=== PATIENT | female | born 1955 | race Caucasian/White ===

== ENCOUNTER → 2017-06-22 | Day surgery (SDC) | payer BC ==
--- NOTE | 2017-06-23 17:27 | PATH ---
Surgical Pathology Report Patient Name: EFE SMITH [facility]. Rec. #: [id number] /Age/Gender: 1955 (Age: 61) / F Account: [id number] Location: RADIOLOGY ULRAS Taken: 06/22/2017 Received: 06/22/2017 Reported: 06/23/2017 Physicians: Igor Rose NP Specimen(s) Received LEFT BREAST CORE BIOPSY 3:00 Clinical History Palpable mass (palpable left breast 3:00, 0.7 cm mass) Ultrasound findings: Suspicious Final Diagnosis LEFT BREAST, 3:00, ULTRASOUND GUIDED NEEDLE CORE BIOPSY: MODERATELY DIFFERENTIATED INVASIVE DUCTAL CARCINOMA, MEASURING AT LEAST 0.2 CM MEASURED ON THE SLIDE. Results of Estrogen Receptor (ER) and Progesterone Receptor (NE) studies performed at [facility] are as follows: ER (clone [id number] mouse monoclonal antibody by [employer]): >95% nuclear staining with strong intensity (Positive). NE (clone16 mouse monoclonal antibody by [employer]): 0% nuclear staining (Negative). Positive and negative controls (internal if applicable) show appropriate results. Formalin fixation and cold ischemic times are within current ASCO/CAP recommendations for ER, NE and Her2 testing. Comment: Immunohistochemical stains performed and interpreted at [facility] show the following results: The tumor is positive with E-Cadherin, consistent with ductal phenotype. This case was discussed with JESSICA Macias on June 23, 2017. Assays for Her2/madhuri and Ki67 are pending, and a report will follow. Electronically Signed Jean Marie Haq M.D. Addendum Reported: 06/24/2017 Addendum Diagnosis Results of Her2 (IHC) & Ki-67 studies performed at [place], [place] ([id number]) are as follows: Her2 IHC (EP3 from [employer], formerly known as [id number], using [employer] Polymer Refine detection kit): 1+ Negative Ki-67: ~20% (Intermediate proliferative index) Positive and negative controls (internal if applicable) show appropriate results. Jean Marie Haq M.D. Gross Description Received in formalin, labeled "left breast biopsy," are 4 mcpherson-yellow, cylindrical portions of fibroadipose tissue ranging from 0.8-1.5 cm. in length and averaging 0.1 cm. in diameter. The specimen is submitted in toto in one cassette. Time to formalin fixation: Less than one minute Total formalin fixation time: Approximately 7 hours. 06/22/2017 [facility]06/22/2017
== END | disposition home or self-care (01) ==
LOC: JRADUS-SUR 09:31
PROVIDERS: ATTEND Nurse Practitioner
PROC: 0HBU3ZX Excision of Left Breast, Percutaneous Approach, Diagnostic (ICD-10-PCS; principal; 2017-06-22)
DX: C50.912 Malignant neoplasm of unspecified site of left female breast (principal); Z17.0 Estrogen receptor positive status [ER+]
CPT/HCPCS: 19083; 88305-TC; 88342-TC

== ENCOUNTER 2017-10-03 17:30 | Emergency (ER) | payer BC ==
[2017-10-03 17:44] VITALS: BMI 20.5
[2017-10-03] MEDS ORDERED: ACETAMINOPHEN 1000 MG/100 ML VIAL (NON FORMULARY) IVPB ONE (18:00)
[2017-10-03] MEDS ORDERED: SODIUM CHLORIDE 1,000 ML IV STA (18:01)
--- NOTE | 2017-10-03 18:01 | PDOC ---
History of Present Illness - General History Source: Patient Exam Limitations: No Limitations - History of Present Illness Initial Comments: 10/03/17 18:27 Chief Complaint: Fever History of Present Illness: The patient comes in with complaints of 1 days of increasing fever. She reports her fever began at 99.1 and increased to 102 by this afternoon. Additionally she reports a burning and tightness in her chest, making it difficult to breathe. She reports throat swelling and soreness, and nasal congestion as well that began today. The patient reports being sent to the ED by her doctors at [facility] for a white blood cell count and evaluation of fever source. She reports being instructed to not take any pain relievers because of her chemotherapy course. Review of Systems: She denies any chills, diaphoresis, or body aches. She denies any nausea or vomiting aside from being related to her chemotherapy. She denies diarrhea or constipation. The patient denies any urinary complaints or vaginal discharge. Past Medical History: The patient is currently undergoing chemotherapy for breast cancer at [facility]. Her lumpectomy was in June 30 and her most recent chemotherapy session was on August 27. 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 Social History: Denies drug, alcohol, or drug use <Christine Gunter - Last Filed: 10/03/17 18:27> <Fortunato Root - Last Filed: 10/03/17 18:50> - General Chief Complaint: Respiratory Stated Complaint: SORE THROAT, NASAL CONGESTION, COUGH, FEVER Time Seen by Provider: 10/03/17 17:35 Past History <Christine Gunter - Last Filed: 10/03/17 18:27> - Past Medical History Anemia: No Asthma: No Cancer: No Cardiac Disorders: Yes (H/O RENAL CA, BREAST CA) CVA: No COPD: No CHF: No Dementia: No Diabetes: No GI Disorders: Yes (INTERNAL HEMORRHOIDS,CONSTIPATION,IBS,MELANOSIS COLI, REDUNDANT COLON,) Disorders: No HTN: No Hypercholesterolemia: No Liver Disease: No Seizures: No Thyroid Disease: No - Surgical History Abdominal Surgery: No Appendectomy: No Cardiac Surgery: No Cholecystectomy: No Lung Surgery: No Neurologic Surgery: No Orthopedic Surgery: No - Suicide/Smoking/Psychosocial Hx Smoking History: Never smoked Have you smoked in the past 12 months: No Hx Alcohol Use: No Drug/Substance Use Hx: No Substance Use Type: None <Fortunato Root - Last Filed: 10/03/17 18:50> - Past Medical History Allergies/Adverse Reactions: Allergies Allergy/AdvReac Type Severity Reaction Status Date / Time No Known Drug Allergies Allergy Verified 10/03/17 17:35 Home Medications: Ambulatory Orders Lubiprostone [Amitiza] 96 mcg PO BID 12/28/15 Polyethylene Glycol 3350 [Miralax 255 gm Btl -] 17 gm PO HS 12/28/15 Zolpidem Tartrate 5 mg PO HS PRN 12/28/15 Bisacodyl [Laxative] 10 mg PO DAILY 10/03/17 Docusate Sodium [Colace] 100 mg PO DAILY 10/03/17 Review of Systems - Review of Systems Able to Perform ROS?: Yes All Other Systems: Reviewed and Negative <Christine Gunter - Last Filed: 10/03/17 18:27> *Physical Exam - Vital Signs Last Vital Signs Temp Pulse Resp BP Pulse Ox 102.4 F H 112 H 20 139/91 97 10/03/17 17:30 10/03/17 17:30 10/03/17 17:30 10/03/17 17:30 10/03/17 17:30 <Christine Gunter - Last Filed: 10/03/17 18:27> - Vital Signs Last Vital Signs Temp Pulse Resp BP Pulse Ox 102.4 F H 112 H 20 139/91 97 10/03/17 17:30 10/03/17 17:30 10/03/17 17:30 10/03/17 17:30 10/03/17 17:30 <Fortunato Root - Last Filed: 10/03/17 18:50> ED Treatment Course - LABORATORY CBC & Chemistry Diagram: 10/03/17 18:16 10/03/17 18:16 - ADDITIONAL ORDERS Additional order review: 10/03/17 18:00 Group A Strep Rapid Antigen - Final Throat - Medications Given in the ED: ED Medications Discontinued Medications Generic Name Dose Route Start Last Admin Trade Name Freq PRN Reason Stop Dose Admin Acetaminophen 1,000 mg 10/03/17 18:00 10/03/17 18:20 Ofirmev Injection - IVPB 10/03/17 18:01 1,000 mg ONCE ONE Administration <Christine Gunter - Last Filed: 10/03/17 18:27> - LABORATORY CBC & Chemistry Diagram: 10/03/17 18:16 10/03/17 18:16 <Fortunato Root - Last Filed: 10/03/17 18:50> Medical Decision Making - Medical Decision Making 10/03/17 18:49 Strep Screen: Negative <Fortunato Root - Last Filed: 10/03/17 18:50> *DC/Admit/Observation/Transfer - Attestations Scribe Attestion: 10/03/17 18:28 Documentation prepared by Christine Gunter, acting as clinical medical assistant for Fortunato Blunt MD. <Christine Gunetr - Last Filed: 10/03/17 18:27> <Fortunato Root - Last Filed: 10/03/17 18:50> - Discharge Dispostion Condition at time of disposition: Stable
[2017-10-03] MEDS ORDERED: ACETAMINOPHEN INJECTION 100 ML IVPB ONE (18:09)
[2017-10-03 18:36] LABS: BASO % 0.2 % (0-2.0); EOS % 0.8 % (0-4.5); LYMPH % 5.7 % (8-40); MCH 31.1 pg (25.7-33.7); MCHC 32.5 g/dl (32.0-36.0); MEAN CELL VOLUME 95.6 fl (80-96); MEAN PLT VOLUME 9.2 fl (7.5-11.1); MONO % 8.8 % (3.8-10.2); NEUT % 84.5 % (42.8-82.8); PLATELET COUNT 267 K/MM3 (134-434); RBC 4.19 M/mm3 (3.60-5.2); RDW 14.1 % (11.6-15.6); WHITE BLOOD COUNT 9.6 K/mm3 (4.0-10.8)
[2017-10-03 18:49] LABS: ALBUMIN 4.2 g/dl (3.5-5.0); ALK PHOS 171 U/L (32-92); ANION GAP 8 (8-16); BILIRUBIN,TOTAL 0.4 mg/dl (0.2-1.0); BLOOD UREA NITROGEN 10 mg/dl (7-18); CALCIUM 9.2 mg/dl (8.4-10.2); CHLORIDE 96 mmol/L (98-107); CO2 27 mmol/L (22-28); CREATININE 0.8 mg/dl (0.6-1.3); GLUCOSE,RANDOM 107 mg/dl (74-106); SGOT/AST 39 U/L (10-42); SGPT/ALT 91 U/L (10-40); SODIUM 131 mmol/L (136-145); TOT PROT 6.5 g/dl (6.4-8.3)
[2017-10-03 18:55] LABS: PH,URINE 7.5 (4.5-8); URINE APPEARANCE Clear; URINE BILIRUBIN Negative (NEGATIVE); URINE GLUCOSE (UA) Negative (NEGATIVE); URINE KETONE Trace (NEGATIVE); URINE NITRITE Negative (NEGATIVE); URINE PROTEIN Negative (NEGATIVE); URINE UROBILINOGEN 0.2 (0.2-1.0)
[2017-10-03 19:00] LABS: URINE BLOOD Trace-intact (NEGATIVE); URINE COLOR YELLOW
[2017-10-03] MEDS ORDERED: CEFTRIAXONE 1 GM in DEXTROSE 5%-WATER - 100 ML IVPB ONE (19:50)
[2017-10-03] MEDS ORDERED: OSELTAMIVIR PHOSPHATE 75 MG CAPSULE ONE (19:51)
[2017-10-03] MEDS ORDERED: AZITHROMYCIN IVPB 500 MG in DEXTROSE 5%-WATER - 250 ML IVPB ONE (19:51)
[2017-10-03] MEDS ORDERED: SODIUM CHLORIDE 1,000 ML IV ONE (19:51)
[2017-10-03] MEDS ORDERED: cefTRIAXone SODIUM 1 GM VIAL ONE (19:52)
[2017-10-03] MEDS ORDERED: AZITHROMYCIN 500 MG VIAL IVPB ONE (19:52)
[2017-10-03] MEDS ORDERED: OSELTAMIVIR PHOSPHATE 75 MG CAPSULE PO ONE (20:09)
--- NOTE | 2017-10-03 20:12 | PDOC ---
*Physical Exam - Vital Signs Last Vital Signs Temp Pulse Resp BP Pulse Ox 100 F H 89 16 139/91 97 10/03/17 18:53 10/03/17 18:53 10/03/17 18:53 10/03/17 17:30 10/03/17 17:30 ED Treatment Course - LABORATORY CBC & Chemistry Diagram: 10/03/17 18:16 10/03/17 18:16 - ADDITIONAL ORDERS Additional order review: Laboratory Results 10/03/17 10/03/17 10/03/17 18:20 18:16 18:16 Sodium 131 L Potassium 4.0 Chloride 96 L Carbon Dioxide 27 Anion Gap 8 BUN 10 Creatinine 0.8 Creat Clearance w eGFR > 60 Random Glucose 107 H Lactic Acid 0.8 Calcium 9.2 Total Bilirubin 0.4 AST 39 ALT 91 H Alkaline Phosphatase 171 H Total Protein 6.5 Albumin 4.2 Urine Color Yellow Urine Appearance Clear Urine pH 7.5 Ur Specific [place] 1.015 Urine Protein Negative Urine Glucose (UA) Negative Urine Ketones Trace Urine Blood Trace-intact H Urine Nitrite Negative Urine Bilirubin Negative Urine Urobilinogen 0.2 Ur Leukocyte Esterase Negative 10/03/17 18:00 Group A Strep Rapid Antigen - Final Throat 10/03/17 18:16 RBC 4.19 MCV 95.6 MCHC 32.5 RDW 14.1 MPV 9.2 Neutrophils % 84.5 H Lymphocytes % 5.7 L Monocytes % 8.8 Eosinophils % 0.8 Basophils % 0.2 - Medications Given in the ED: ED Medications Discontinued Medications Generic Name Dose Route Start Last Admin Trade Name Freq PRN Reason Stop Dose Admin Acetaminophen 1,000 mg 10/03/17 18:00 10/03/17 18:20 Ofirmev Injection - IVPB 10/03/17 18:01 1,000 mg ONCE ONE Administration Sodium Chloride 1,000 mls @ 1,000 mls/hr 10/03/17 18:01 10/03/17 18:20 Normal Saline - IV 10/03/17 19:00 1,000 mls/hr ASDIR STA Administration Progress Note - Progress Note Progress Note: Care of this patient was transferred to [place] from Dr. Clemons at 1900 hrs. This is a 62-year-old female who is currently undergoing chemotherapy for breast cancer. Patient has had several rounds of relatively aggressive chemotherapy recently. Patient now comes in with complaint of cough congestion and upper respiratory tract type symptoms. Patient was afebrile here in the emergency room. Patient did get a flu shot this year. Patient has a workup pending. 19:30 Reassessment: Patient was given antipyretics for fever with improvement of her oral temperature to 100.0 Patient's chest x-ray does show a right lower lobe infiltrate. Patient otherwise does not want to stay in the hospital if at all possible. Her oxygen level is 97% on room air with a normal respiratory rate. Patient does have a normal white count with a left shift and there is adequate neutrophils in spite of her chemotherapy. Patient's influenza screen is positive for influenza way so I started her on Tamiflu and she will continue it for 5 days. Patient is nontoxic appearing . Her lactic acid is 0.8 which is well within the normal range. Patient will be given a trial of outpatient treatment with Augmentin and azithromycin. Patient was instructed to have a low threshold for return to the emergency room and possible admission if her symptoms are not improving within the next 24-48 hours or if she is worse within the next 24-48 hours. Patient does have an oncologist in a primary care doctor that she will follow- up with within the next 48 hours. ] Patient given copies of her lab work and prescriptions were sent to her pharmacy for Tamiflu, Augmentin and azithromycin. Patient was given a first dose of IV antibiotics of ceftriaxone and azithromycin IV in the emergency department in addition to that she will was well hydrated with 2 L of fluid. *DC/Admit/Observation/Transfer Diagnosis at time of Disposition: Community acquired bacterial pneumonia, Influenza A - Discharge Dispostion Disposition: HOME Condition at time of disposition: Stable Admit: No - Referrals - Patient Instructions Additional Instructions: Get your prescriptions filled tomorrow morning and start your antibiotics in the morning. Take azithromycin 1 tablet a day for the next 4 days Take Augmentin one tablet twice a day for the next 10 days Tylenol or Motrin as needed for fever and bodyaches. Take Tamiflu one tablet twice a day for the next 5 days Call your oncologist in the morning and let him know you were in the emergency room and if he wants results of your blood work take a picture of it and text them to him or send them to him. Return to the emergency department immediately with ANY new, persistent or worsening symptoms. Continue any medications as previously prescribed by your physician. You should follow up with your primary doctor as soon as possible regarding today's emergency department visit. . Please make sure your doctor reviews the results of your emergency evaluation. Thank you for coming to the Emergency Department today for your care. It was a pleasure to see you today. Please note that your evaluation is INCOMPLETE until you follow-up with your doctor. - Post Discharge Activity
[2017-10-03 20:27] VITALS: PULSE 78; TEMP 100
[2017-10-03 20:31] VITALS: BP 124/81
[2017-10-03 21:15] LABS: AMORP PHOS FEW /hpf (NONE SEEN); EPI CELLS FEW /HPF; URINE BACTERIA FEW /hpf (NEGATIVE); URINE WBC 0-2 (0-5)
--- NOTE | 2017-10-04 10:29 | PDOC ---
History of Present Illness - General Chief Complaint: Respiratory Stated Complaint: SORE THROAT, NASAL CONGESTION, COUGH, FEVER Time Seen by Provider: 10/03/17 17:35 Past History - Past Medical History Allergies/Adverse Reactions: Allergies Allergy/AdvReac Type Severity Reaction Status Date / Time No Known Drug Allergies Allergy Verified 10/03/17 17:35 Home Medications: Ambulatory Orders Lubiprostone [Amitiza] 96 mcg PO BID 12/28/15 Polyethylene Glycol 3350 [Miralax 255 gm Btl -] 17 gm PO HS 12/28/15 Zolpidem Tartrate 5 mg PO HS PRN 12/28/15 Amoxicillin/Potassium Clav [Augmentin 875-125 Tablet] 1 each PO BID #20 tablet 10/03/17 Azithromycin 250 mg PO DAILY #4 tablet 10/03/17 Bisacodyl [Laxative] 10 mg PO DAILY 10/03/17 Docusate Sodium [Colace] 100 mg PO DAILY 10/03/17 Oseltamivir Phosphate [Tamiflu] 75 mg PO BID #10 capsule 10/04/17 Anemia: No Asthma: No Cancer: No Cardiac Disorders: Yes (H/O RENAL CA, BREAST CA) CVA: No COPD: No CHF: No Dementia: No Diabetes: No GI Disorders: Yes (INTERNAL HEMORRHOIDS,CONSTIPATION,IBS,MELANOSIS COLI, REDUNDANT COLON,) Disorders: No HTN: No Hypercholesterolemia: No Liver Disease: No Seizures: No Thyroid Disease: No - Surgical History Abdominal Surgery: No Appendectomy: No Cardiac Surgery: No Cholecystectomy: No Lung Surgery: No Neurologic Surgery: No Orthopedic Surgery: No - Suicide/Smoking/Psychosocial Hx Smoking History: Never smoked Have you smoked in the past 12 months: No Hx Alcohol Use: No Drug/Substance Use Hx: No Substance Use Type: None *Physical Exam - Vital Signs Last Vital Signs Temp Pulse Resp BP Pulse Ox 100 F H 78 16 124/81 99 10/03/17 20:26 10/03/17 20:26 10/03/17 20:26 10/03/17 20:26 10/03/17 20:26 ED Treatment Course - LABORATORY CBC & Chemistry Diagram: 10/03/17 18:16 10/03/17 18:16 - ADDITIONAL ORDERS Additional order review: 10/03/17 18:00 Influenza Types A,B Antigen (SHANTA) - Final Nasopharyngeal Swab - Final 10/03/17 18:00 Group A Strep Rapid Antigen - Final Throat 10/03/17 18:16 RBC 4.19 MCV 95.6 MCHC 32.5 RDW 14.1 MPV 9.2 Neutrophils % 84.5 H Lymphocytes % 5.7 L Monocytes % 8.8 Eosinophils % 0.8 Basophils % 0.2 - Medications Given in the ED: ED Medications Discontinued Medications Generic Name Dose Route Start Last Admin Trade Name Mallory PRN Reason Stop Dose Admin Acetaminophen 1,000 mg 10/03/17 18:00 10/03/17 18:20 Ofirmev Injection - IVPB 10/03/17 18:01 1,000 mg ONCE ONE Administration Sodium Chloride 1,000 mls @ 1,000 mls/hr 10/03/17 18:01 10/03/17 18:20 Normal Saline - IV 10/03/17 19:00 1,000 mls/hr ASDIR STA Administration Azithromycin 500 mg/ Dextrose 250 mls @ 250 mls/hr 10/03/17 19:51 10/03/17 20 :26 IVPB 10/03/17 20:50 250 mls/hr ONCE ONE Administration Ceftriaxone Sodium 1 gm/ 100 mls @ 200 mls/hr 10/03/17 19:50 10/03/17 20:03 Dextrose IVPB 10/03/17 20:19 200 mls/hr ONCE ONE Administration Sodium Chloride 1,000 mls @ 1,000 mls/hr 10/03/17 19:51 10/03/17 19:45 Normal Saline - IV 10/03/17 20:50 1,000 mls/hr .Q1H ONE Administration Oseltamivir Phosphate 75 mg 10/03/17 20:09 10/03/17 20:17 Tamiflu - PO 10/03/17 20:10 75 mg ONCE ONE Administration Medical Decision Making - Medical Decision Making 10/04/17 10:28 Patient called, the prescription for Tamiflu did not get to the Pharmacy. Called , transmited to [facility] *DC/Admit/Observation/Transfer Diagnosis at time of Disposition: Community acquired bacterial pneumonia, Influenza A - Discharge Dispostion Disposition: HOME Condition at time of disposition: Stable - Prescriptions Prescriptions: Amoxicillin/Potassium Clav [Augmentin 875-125 Tablet] 1 each PO BID #20 tablet Azithromycin 250 mg PO DAILY #4 tablet Oseltamivir Phosphate [Tamiflu] 75 mg PO BID #10 capsule - Referrals - Patient Instructions Additional Instructions: Get your prescriptions filled tomorrow morning and start your antibiotics in the morning. Take azithromycin 1 tablet a day for the next 4 days Take Augmentin one tablet twice a day for the next 10 days Tylenol or Motrin as needed for fever and bodyaches. Take Tamiflu one tablet twice a day for the next 5 days Call your oncologist in the morning and let him know you were in the emergency room and if he wants results of your blood work take a picture of it and text them to him or send them to him. Return to the emergency department immediately with ANY new, persistent or worsening symptoms. Continue any medications as previously prescribed by your physician. You should follow up with your primary doctor as soon as possible regarding today's emergency department visit. . Please make sure your doctor reviews the results of your emergency evaluation. Thank you for coming to the Emergency Department today for your care. It was a pleasure to see you today. Please note that your evaluation is INCOMPLETE until you follow-up with your doctor. - Post Discharge Activity
== END 2017-10-03 21:58 | disposition home or self-care (01) ==
LOC: FER 17:30
PROC: 3E033NZ Introduction of Analgesics, Hypnotics, Sedatives into Peripheral Vein, Percutaneous Approach (ICD-10-PCS; principal; 2017-10-03)
PROC: 3E0337Z Introduction of Electrolytic and Water Balance Substance into Peripheral Vein, Percutaneous Approach (ICD-10-PCS; 2017-10-03)
DX: J09.X2 Influenza due to identified novel influenza A virus with other respiratory manifestations (principal); J15.9 Unspecified bacterial pneumonia
CPT/HCPCS: 36415; 71046-TC; 80053; 81003; 81015; 83605; 85025; 87040; 87070; 87086; 87430; 87804; 99285-25